=== PATIENT | female | born 1935 | race Caucasian/White ===

== ENCOUNTER 2024-03-17 14:32 | Observation (INO) | payer MEDICARE ==
[2024-03-17 15:42] LABS: Basophils # (A) 0.1 k/uL (0-0.2); Basophils % (A) 1 %; Eosinophils # (A) 0.3 k/uL (0-0.7); Eosinophils % (A) 3 %; HCT 42.4 % (34.0-46.0); HGB 13.4 gm/dL (11.4-16.0); Lymphocytes # (A) 1.8 k/uL (1.0-4.8); Lymphocytes % (A) 24 %; MCH 30.6 pg (25.0-35.0); MCHC 31.6 g/dL (31.0-37.0); MCV 96.8 fL (80.0-100.0); Mean Platelet Volume 7.7; Monocytes # (A) 0.5 k/uL (0-1.0); Monocytes % (A) 6 %; Neutrophils # (A) 4.7 k/uL (1.3-7.7); Neutrophils % (A) 64 %; Platelet Count 239 k/uL (150-450); RBC 4.39 m/uL (3.80-5.40); RDW 13.5 % (11.5-15.5); WBC 7.4 k/uL (3.8-10.6)
--- NOTE | 2024-03-17 15:43 | ED ---
Abdominal Pain HPI - General Source: patient, family, RN notes reviewed Mode of arrival: ambulatory Limitations: no limitations <Kathy Sage - Last Filed: 03/17/24 15:42> <Jose R Bosch - Last Filed: 03/18/24 03:04> - General Chief Complaint: Abdominal Pain Stated Complaint: abd pain Time Seen by Provider: 03/17/24 15:42 - History of Present Illness Initial Comments: Quick [id number] female presenting with abdominal pain x 2 weeks. States the pain is nonlocalized. She is also having dark red rectal bleeding which prompted her to be evaluated in the ER. (Kathy Sage) 88-year-old female presenting with chief complaint of abdominal pain and GI bleed. Patient has been having lower aching abdominal pain for the past 2 weeks. Over the last 2 days she has had a combination of dark stool and bright red rectal bleeding. No blood thinners. This is what prompted her to come to the ER. She is accompanied by her daughter who provides majority of the history, stating that the patient has slight dementia. Admits to some nausea, no vomiting. Admits to constipation. No fevers. Daughter states that the patient has a strong family history of colon cancer. Daughter also states that the patient is sometimes out of breath with minimal exertion. No chest pain. (Jose R Bosch) - Related Data Home Medications Medication Instructions Recorded Confirmed Chlorthalidone [Hygroton] 25 mg PO DAILY 03/17/24 03/17/24 Losartan Potassium [Cozaar] 100 mg PO DAILY 03/17/24 03/17/24 Allergies Allergy/AdvReac Type Severity Reaction Status Date / Time meperidine [From Demerol] Allergy Vomiting Verified 03/17/24 19:58 Review of Systems ROS Other: All systems not noted in ROS Statement are negative. <Kathy Sage - Last Filed: 03/17/24 15:42> ROS Other: All systems not noted in ROS Statement are negative. <Jose R Bosch - Last Filed: 03/18/24 03:04> ROS Statement: Those systems with pertinent positive or pertinent negative responses have been documented in the HPI. Past Medical History Past Medical History: Atrial Fibrillation, Dementia, Hypertension Additional Past Surgical History / Comment(s): cardiac ablation, cervical fusion <Kathy Sage - Last Filed: 03/17/24 15:42> General Exam Limitations: no limitations <Kathy Sage - Last Filed: 03/17/24 15:42> Limitations: altered mental status (Dementia, baseline mental status. Daughter assists in providing history) General appearance: alert, in no apparent distress Head exam: Present: atraumatic, normocephalic Eye exam: Present: normal appearance, EOMI Neck exam: Present: normal inspection. Absent: meningismus Respiratory exam: Present: normal lung sounds bilaterally. Absent: respiratory distress, wheezes, rales, rhonchi, stridor Cardiovascular Exam: Present: regular rate, normal rhythm, normal heart sounds. Absent: systolic murmur, diastolic murmur, rubs, gallop, clicks GI/Abdominal exam: Present: soft. Absent: distended, tenderness, guarding, rebound, rigid Rectal exam: Present: normal inspection, normal rectal tone, heme (+) stool Neurological exam: Present: alert, oriented X3 Psychiatric exam: Present: normal affect, normal mood Skin exam: Present: warm, dry <Jose R Bosch - Last Filed: 03/18/24 03:04> - General Exam Comments Initial Comments: Visual Physical Exam Vital signs reviewed General: Well-appearing, nontoxic, no acute distress. Head: Normocephalic, atraumatic Eyes: PERRLA, EOMI ENT: Airway patent Chest: Nonlabored breathing Skin: No visual rash, normal skin tone Neuro: Alert and oriented 3 Musculoskeletal: No gross abnormalities (Kathy Sage) Course Vital Signs 03/17/24 03/17/24 03/17/24 14:50 17:34 22:12 Temperature 97.7 F Pulse Rate 55 L 59 L 55 L Respiratory 20 18 18 Rate Blood Pressure 187/87 148/70 155/81 O2 Sat by Pulse 95 96 97 Oximetry 03/18/24 00:20 Temperature Pulse Rate 53 L Respiratory 20 Rate Blood Pressure 153/74 O2 Sat by Pulse 97 Oximetry Medical Decision Making - Lab Data Result diagrams: 03/17/24 15:01 <Kathy Sage - Last Filed: 03/17/24 15:42> - Lab Data Result diagrams: 03/17/24 15:01 03/17/24 15:01 <Jose R Bosch - Last Filed: 03/18/24 03:04> - Medical Decision Making I completed the quick note portion of this chart signed Kathy Sage PA-C (Kathy Sage) Was pt. sent in by a medical professional or institution ([facility], [facility], urgent care, hospital, or long-term...) When possible be specific @ -No Did you speak to anyone other than the patient for history (EMS, parent, family, police, friend...)? What history was obtained from this source @ -Majority of the history is obtained from patient's daughter at bedside Did you review nursing and triage notes (agree or disagree)? Why? @ -I reviewed and agree with nursing and triage notes Were old charts reviewed (outside hosp., previous admission, EMS record, old EKG, old radiological studies, urgent care reports/EKG's, long-term records)? Report findings @ -No old charts were reviewed Differential Diagnosis (chest pain, altered mental status, abdominal pain women, abdominal pain men, vaginal bleeding, weakness, fever, dyspnea, syncope, headache, dizziness, GI bleed, back pain, seizure, CVA, palpatations, mental health, musculoskeletal)? @ -MDM Differential GI Bleed: Esophageal varices, aortoenteric fistula, Shala-Sherwood, gastritis, peptic ulcer disease, diverticulosis, inflammatory bowel disease, hemorrhoids, fissure, colitis, malignancy, Meckels diverticulum this is not meant to be an all- inclusive list. EKG interpreted by me (3pts min.). @ -As above X-rays interpreted by me (1pt min.). @ -None done CT interpreted by me (1pt min.). @ -CT shows no evidence for gastrointestinal hemorrhage on this non-GI bleed scan. Consider evaluation with tagged red blood cell scan if there is concern for hemorrhage. No evidence for acute abdominal process. Moderate to large leobardo unt of stool throughout the colon. Grade 2 anterolisthesis of L4 and L5. No spondylolysis. Fibroid uterus. U/S interpreted by me (1pt. min.). @ -None done What testing was considered but not performed or refused? (CT, X-rays, U/S, labs)? Why? @ -None What meds were considered but not given or refused? Why? @ -None Did you discuss the management of the patient with other professionals (sarah rush ikeya Heard, PA, [facility], lab, RT, psych nurse, social work manager, ergonomics consultant, teacher, corporate security officer, machine adjuster leader case trim)? Give summary @ -I spoke with Dr. Yañez who accepted admission Was smoking cessation discussed for >3mins.? @ -No Was critical care preformed (if so, how long)? @ -No Were there social determinants of health that impacted care today? How? (Homelessness, low income, unemployed, alcoholism, drug addiction, transportation, low edu. Level, literacy, decrease access to med. care, care home, r ehab)? @ -No Was there de-escalation of care discussed even if they declined (Discuss DNR or withdrawal of care, Hospice)? DNR status @ -No What co-morbidities impacted this encounter? (DM, HTN, Smoking, COPD, CAD, Cancer, CVA, ARF, Chemo, Hep., AIDS, mental health diagnosis, sleep apnea, morbid obesity)? @ -None Was patient admitted / discharged? Hospital course, mention meds given and route, prescriptions, significant lab abnormalities, going to OR and other pertinent info. @ -88-year-old female present with chief complaint of abdominal pain and GI bleed. Abdominal pain has been ongoing for 2 weeks but bleeding started 2 days ago. Workup is initiated by triage. Hemoglobin is stable at 13.4, patient does not take blood thinners. Positive called stool. Remainder of lab work is opal ssly unremarkable. CT shows no acute findings to account for the patient's bleeding. Shared decision-making was utilized, patient and her daughter decide that they would prefer admission with evaluation by GI. Given the patient's strong family history of colon cancer I believe this is reasonable. Patient and daughter are agreeable with this plan. I discussed this case with my attending Dr. Gutierrez Undiagnosed new problem with uncertain prognosis? @ -No Drug Therapy requiring intensive monitoring for toxicity (Heparin, Nitro, Insulin, Cardizem)? @ -No Were any procedures done? @ -No Diagnosis/symptom? @ -GI bleed, abdominal pain Acute, or Chronic, or Acute on Chronic? @ -Acute Uncomplicated (without systemic symptoms) or Complicated (systemic symptoms)? @ -Uncomplicated Side effects of treatment? @ -No Exacerbation, Progression, or Severe Exacerbation? @ -No Poses a threat to life or bodily function? How? (Chest pain, [place], [place], pneumonia, PE, COPD, DKA, ARF, appy, cholecystitis, CVA, Diverticulitis, Homicidal, Suicidal, threat to staff... and all critical care pts) @ -Potential (Jose R Bosch) - Lab Data Lab Results 03/17/24 03/17/24 03/17/24 Range/Units 15:01 15:01 15:01 WBC 7.4 (3.8-10.6) k/uL RBC 4.39 (3.80-5.40) m/uL Hgb 13.4 (11.4-16.0) gm/dL Hct 42.4 (34.0-46.0) % MCV 96.8 (80.0-100.0) fL MCH 30.6 (25.0-35.0) pg MCHC 31.6 (31.0-37.0) g/dL RDW 13.5 (11.5-15.5) % Plt Count 239 (150-450) k/uL MPV 7.7 Neutrophils % 64 % Lymphocytes % 24 % Monocytes % 6 % Eosinophils % 3 % Basophils % 1 % Neutrophils # 4.7 (1.3-7.7) k/uL Lymphocytes # 1.8 (1.0-4.8) k/uL Monocytes # 0.5 (0-1.0) k/uL Eosinophils # 0.3 (0-0.7) k/uL Basophils # 0.1 (0-0.2) k/uL APTT 23.1 (22.0-30.0) sec Sodium 138 (137-145) mmol/L Potassium 3.7 (3.5-5.1) mmol/L Chloride 104 (98-107) mmol/L Carbon Dioxide 29 (22-30) mmol/L Anion Gap 5 mmol/L BUN 13 (7-17) mg/dL Creatinine 0.78 (0.52-1.04) mg/dL Est GFR (CKD-EPI)AfAm 80 (>60 ml/min/1.73 sqM) Est GFR (CKD-EPI)NonAf 69 (>60 ml/min/1.73 sqM) Glucose 89 (74-99) mg/dL Plasma Lactic Acid Jose Luis (0.7-2.0) mmol/L Calcium 9.0 (8.4-10.2) mg/dL Total Bilirubin 0.8 (0.2-1.3) mg/dL AST 26 (14-36) U/L ALT 16 (4-34) U/L Alkaline Phosphatase 78 (38-126) U/L Troponin I (0.000-0.034) ng/mL Total Protein 6.8 (6.3-8.2) g/dL Albumin 4.2 (3.5-5.0) g/dL Amylase 70 (30-110) U/L Lipase 164 (23-300) U/L Urine Color Urine Appearance (Clear) Urine pH (5.0-8.0) Ur Specific [place] (1.001-1.035) Urine Protein (Negative) Urine Glucose (UA) (Negative) Urine Ketones (Negative) Urine Blood (Negative) Urine Nitrite (Negative) Urine Bilirubin (Negative) Urine Urobilinogen (<2.0) mg/dL Ur Leukocyte Esterase (Negative) Stool Occult Blood (Negative) Blood Type Blood Type Confirm Blood Type Recheck Bld Type Recheck Status Antibody Screen Spec Expiration Date 03/17/24 03/17/24 03/17/24 Range/Units 15:01 15:01 15:09 WBC (3.8-10.6) k/uL RBC (3.80-5.40) m/uL Hgb (11.4-16.0) gm/dL Hct (34.0-46.0) % MCV (80.0-100.0) fL MCH (25.0-35.0) pg MCHC (31.0-37.0) g/dL RDW (11.5-15.5) % Plt Count (150-450) k/uL MPV Neutrophils % % Lymphocytes % % Monocytes % % Eosinophils % % Basophils % % Neutrophils # (1.3-7.7) k/uL Lymphocytes # (1.0-4.8) k/uL Monocytes # (0-1.0) k/uL Eosinophils # (0-0.7) k/uL Basophils # (0-0.2) k/uL APTT (22.0-30.0) sec Sodium (137-145) mmol/L Potassium (3.5-5.1) mmol/L Chloride (98-107) mmol/L Carbon Dioxide (22-30) mmol/L Anion Gap mmol/L BUN (7-17) mg/dL Creatinine (0.52-1.04) mg/dL Est GFR (CKD-EPI)AfAm (>60 ml/min/1.73 sqM) Est GFR (CKD-EPI)NonAf (>60 ml/min/1.73 sqM) Glucose (74-99) mg/dL Plasma Lactic Acid Jose Luis 0.8 (0.7-2.0) mmol/L Calcium (8.4-10.2) mg/dL Total Bilirubin (0.2-1.3) mg/dL AST (14-36) U/L ALT (4-34) U/L Alkaline Phosphatase (38-126) U/L Troponin I <0.012 (0.000-0.034) ng/mL Total Protein (6.3-8.2) g/dL Albumin (3.5-5.0) g/dL Amylase (30-110) U/L Lipase (23-300) U/L Urine Color Urine Appearance (Clear) Urine pH (5.0-8.0) Ur Specific [place] (1.001-1.035) Urine Protein (Negative) Urine Glucose (UA) (Negative) Urine Ketones (Negative) Urine Blood (Negative) Urine Nitrite (Negative) Urine Bilirubin (Negative) Urine Urobilinogen (<2.0) mg/dL Ur Leukocyte Esterase (Negative) Stool Occult Blood (Negative) Blood Type B Positive Blood Type Confirm Blood Type Recheck No Previous Record Bld Type Recheck Status CABO Indicated Antibody Screen NEGATIVE Spec Expiration Date 03/20/2024230803/17/24 03/17/24 03/17/24 Range/Units 15:14 17:36 20:27 WBC (3.8-10.6) k/uL RBC (3.80-5.40) m/uL Hgb (11.4-16.0) gm/dL Hct (34.0-46.0) % MCV (80.0-100.0) fL MCH (25.0-35.0) pg MCHC (31.0-37.0) g/dL RDW (11.5-15.5) % Plt Count (150-450) k/uL MPV Neutrophils % % Lymphocytes % % Monocytes % % Eosinophils % % Basophils % % Neutrophils # (1.3-7.7) k/uL Lymphocytes # (1.0-4.8) k/uL Monocytes # (0-1.0) k/uL Eosinophils # (0-0.7) k/uL Basophils # (0-0.2) k/uL APTT (22.0-30.0) sec Sodium (137-145) mmol/L Potassium (3.5-5.1) mmol/L Chloride (98-107) mmol/L Carbon Dioxide (22-30) mmol/L Anion Gap mmol/L BUN (7-17) mg/dL Creatinine (0.52-1.04) mg/dL Est GFR (CKD-EPI)AfAm (>60 ml/min/1.73 sqM) Est GFR (CKD-EPI)NonAf (>60 ml/min/1.73 sqM) Glucose (74-99) mg/dL Plasma Lactic Acid Jose Luis (0.7-2.0) mmol/L Calcium (8.4-10.2) mg/dL Total Bilirubin (0.2-1.3) mg/dL AST (14-36) U/L ALT (4-34) U/L Alkaline Phosphatase (38-126) U/L Troponin I (0.000-0.034) ng/mL Total Protein (6.3-8.2) g/dL Albumin (3.5-5.0) g/dL Amylase (30-110) U/L Lipase (23-300) U/L Urine Color Colorless Urine Appearance Clear (Clear) Urine pH 7.5 (5.0-8.0) Ur Specific [place] 1.003 (1.001-1.035) Urine Protein Negative (Negative) Urine Glucose (UA) Negative (Negative) Urine Ketones Negative (Negative) Urine Blood Negative (Negative) Urine Nitrite Negative (Negative) Urine Bilirubin Negative (Negative) Urine Urobilinogen <2.0 (<2.0) mg/dL Ur Leukocyte Esterase Negative (Negative) Stool Occult Blood Positive H (Negative) Blood Type Blood Type Confirm B Positive Blood Type Recheck Bld Type Recheck Status Antibody Screen Spec Expiration Date Disposition <Kathy Sage - Last Filed: 03/17/24 15:42> Time of Disposition: 21:53 <Jose R Bosch - Last Filed: 03/18/24 03:04> Clinical Impression: GI bleed, Abdominal pain Disposition: ADMITTED IP TO THIS HOSP Condition: Fair
[2024-03-17 15:44] LABS: ALT 16 U/L (4-34); AST 26 U/L (14-36); African American GFR (CKD) 80 (>60 ml/min/1.73 sqM); Albumin 4.2 g/dL (3.5-5.0); Alkaline Phosphatase 78 U/L (38-126); Amylase 70 U/L (30-110); Anion Gap 5 mmol/L; Blood Urea Nitrogen 13 mg/dL (7-17); Carbon Dioxide 29 mmol/L (22-30); Chloride 104 mmol/L (98-107); Glucose 89 mg/dL (74-99); Lipase 164 U/L (23-300); Non-African American GFR(CKD) 69 (>60 ml/min/1.73 sqM); Potassium 3.7 mmol/L (3.5-5.1); Sodium 138 mmol/L (137-145); Total Bilirubin 0.8 mg/dL (0.2-1.3); Total Protein 6.8 g/dL (6.3-8.2)
[2024-03-17 17:47] LABS: Appearance,Urine Clear (Clear); Bilirubin,Urine Negative (Negative); Blood,Urine Negative (Negative); Color,Urine Colorless; Glucose,Urine (UA) Negative (Negative); Ketones,Urine Negative (Negative); Leukocyte Esterase,Urine Negative (Negative); Nitrite,Urine Negative (Negative); PH, Urine 7.5 (5.0-8.0); Protein,Urine Negative (Negative); Specific Gravity,Urine 1.003 (1.001-1.035); Urobilinogen,Urine <2.0 mg/dL (<2.0)
[2024-03-17] MEDS: SODIUM CHLORIDE 0.9% 500 ML 500 ML IV ONE (18:33)
[2024-03-17] MEDS: MORPHINE SULFATE 2 MG/ML SYRINGE IVP STA (18:34)
--- NOTE | 2024-03-17 18:52 | CT ---
EXAMINATION TYPE: CT abdomen pelvis w con CT DLP: 662.4 mGycm, Automated exposure control for dose reduction was used. DATE OF EXAM: 03/17/2024 6:38 PM COMPARISON: None CLINICAL INDICATION:Female, 88 years old with history of lower abdominal pain; Lower abdominal pain. Dark red rectal bleeding. TECHNIQUE: Axial CT abdomen pelvis w con;Sagittal and coronal reformats were created on a separate w orkstation. Contrast used:80 mL of Isovue 300 with IV Contrast, (none if empty) Oral contrast used: without Oral Contrast (none if empty) FINDINGS: LOWER CHEST: Unremarkable ABDOMEN LIVER: Unremarkable GALLBLADDER AND BILE DUCTS: Unremarkable. PANCREAS: Unremarkable. SPLEEN: Unremarkable. ADRENAL GLANDS: Unremarkable. KIDNEYS AND URETERS: No evidence of hydronephrosis or renal calculus. The ureters are unremarkable. PELVIS BLADDER: Unremarkable REPRODUCTIVE: Lobular contour to the uterus with calcified degenerating fibroids throughout. ABDOMEN & PELVIS STOMACH AND BOWEL: Small hiatal hernia.No evidence of bowel obstruction. The appendix is normal. PERITONEUM/RETROPERITONEUM: No evidence of pneumoperitoneum or free fluid. VASCULATURE: No evidence of aortic aneurysm. MUSCULOSKELETAL: No acute osseous abnormalities. Moderate disc degeneration changes are present throu ghout the thoracolumbar spine. Grade 2 anterolisthesis of L4 and L5. No spondylolysis. LYMPH NODES: No gross evidence for lymphadenopathy. SOFT TISSUE/ABDOMINAL WALL: Fat-containing inguinal hernias left greater than right. IMPRESSION: 1. No evidence for gastrointestinal hemorrhage on this non-GI bleed scan. Consider evaluation with t agged red blood cell scan if this concern for hemorrhage. 2. No evidence for acute abdominal process. 3. Moderate to large amount stool throughout the colon. 4. Grade 2 anterolisthesis of L4 and L5. No spondylolysis. 5. Fibroid uterus.
[2024-03-17] MEDS ORDERED: NALOXONE 0.4 MG/ML 1 ML VIAL IV PRN (21:44)
--- NOTE | 2024-03-18 00:23 | P.HPIM ---
History of Present Illness H&P Date: 03/17/24 Chief Complaint: rectal bleed 88 year old female with hypertension patient unable to provide any meaningful history due to what appears to be dementia, she believes her mother brought her to the hospital , then goes into a tangential thought process without any meaningful information. she denies any complaint right now. denies abd pain , chest pain , trouble breathing, nausea vomiting. Per the ED note patient was brought in for suspected rectal bleed with a chief c omplaint of dark bowel movement and vague abdominal discomfort over the past few days. No other information available at this time from ED note. Attempted to call the daughter at [phone] go straight to answering system. review of systems Unable to obtain due to suspected dementia on exam Constitutional: No acute distress, conversant, pleasant Eyes: Anicteric sclerae, moist conjunctiva, Pupils equal round reactive to light ENMT: NC/AT Oropharynx clear, no erythema, or exudates Neck: Supple, no masses, or JVD No carotid bruits No thyromegaly Lungs: Clear to auscultation Clear to percussion Normal respiratory effort, no accessory muscle use Cardiovascular: Heart regular in rate and rhythm, No murmurs, gallops, or rubs No peripheral edema Abdominal: Soft Nontender, no guarding, rebound or rigidity Abdomen moving with respiration Normoactive bowel sounds Extremities: No digital cyanosis No clubbing Pedal pulses intact and symmetrical Radial pulses intact and symmetrical No calf tenderness Psychiatric: Alert and oriented to person and place Neuro Muscles Strength 5/5 in all 4 extremities Sensation to light touch grossly present throughout Cranial nerves II-XII grossly intact Past Medical History Past Medical History: Atrial Fibrillation, Dementia, Hypertension Additional Past Surgical History / Comment(s): cardiac ablation, cervical fusion Medications and Allergies Home Medications Medication Instructions Recorded Confirmed Type Chlorthalidone [Hygroton] 25 mg PO DAILY 03/17/24 03/17/24 History Losartan Potassium [Cozaar] 100 mg PO DAILY 03/17/24 03/17/24 History Allergies Allergy/AdvReac Type Severity Reaction Status Date / Time meperidine [From Demerol] Allergy Vomiting Verified 03/17/24 19:58 Physical Exam Vitals: Vital Signs Temp Pulse Resp BP Pulse Ox 03/17/24 22:12 55 L 18 155/81 97 07/07/24 17:34 59 L 18 148/70 96 03/17/24 14:50 97.7 F 55 L 20 187/87 95 Intake and Output 03/17/24 03/17/24 03/18/24 14:59 22:59 06:59 Other: Weight 54.431 kg Results CBC & Chem 7: 03/17/24 15:01 03/17/24 15:01 Labs: Abnormal Lab Results - Last 24 Hours (Table) 03/17/24 Range/Units 20:27 Stool Occult Blood Positive H (Negative) Assessment and Plan Assessment: 88-year-old female with hypertension coming in due to suspected rectal bleed discussed case with ED doctor and accepted the admission for suspected GI bleed for GI evaluation with anticipated length of stay less than 2 midnights Suspected GI bleed Hemoglobin within normal limits 13.4 MCV 96 within normal limit White count 7.4 within normal limits Home medications does not show any aspirin or blood thinners GI consultation Follow-up hemoglobin in the morning CT of the abdomen showing no evidence of GI bleeding, no evidence of acute intra-abdominal process is also showing moderate to large amount of stool throug hout the colon Monitor vital signs IV fluid hydration with normal saline 75 cc/h Protonix 40 mg p.o. 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
[2024-03-18] MEDS: SODIUM CHLORIDE 0.9% 1,000 ML IV SCH (00:30)
[2024-03-18 05:53] VITALS: RESP 16
[2024-03-18 07:15] LABS: Basophils # (A) 0.1 k/uL (0-0.2); Basophils % (A) 1 %; Eosinophils # (A) 0.4 k/uL (0-0.7); Eosinophils % (A) 6 %; HCT 39.6 % (34.0-46.0); HGB 12.7 gm/dL (11.4-16.0); Lymphocytes # (A) 1.9 k/uL (1.0-4.8); Lymphocytes % (A) 28 %; MCH 31.3 pg (25.0-35.0); MCHC 32.2 g/dL (31.0-37.0); MCV 97.2 fL (80.0-100.0); Mean Platelet Volume 7.4; Monocytes # (A) 0.4 k/uL (0-1.0); Monocytes % (A) 6 %; Neutrophils # (A) 4.2 k/uL (1.3-7.7); Neutrophils % (A) 59 %; Platelet Count 229 k/uL (150-450); RBC 4.07 m/uL (3.80-5.40); RDW 13.5 % (11.5-15.5)
[2024-03-18 07:53] LABS: ALT 13 U/L (4-34); AST 21 U/L (14-36); African American GFR (CKD) >90 (>60 ml/min/1.73 sqM); Albumin 3.3 g/dL (3.5-5.0); Alkaline Phosphatase 63 U/L (38-126); Anion Gap 4 mmol/L; Blood Urea Nitrogen 10 mg/dL (7-17); Calcium 8.8 mg/dL (8.4-10.2); Carbon Dioxide 27 mmol/L (22-30); Chloride 108 mmol/L (98-107); Glucose 83 mg/dL (74-99); Non-African American GFR(CKD) 79 (>60 ml/min/1.73 sqM); Potassium 3.7 mmol/L (3.5-5.1); Sodium 139 mmol/L (137-145); Total Bilirubin 0.7 mg/dL (0.2-1.3); Total Protein 5.4 g/dL (6.3-8.2)
--- NOTE | 2024-03-18 10:15 | P.CONS ---
History of Present Illness - Reason for Consult Consult date: 03/18/24 GI bleed Requesting physician: Jose R Bosch - Chief Complaint abdominal pain, rectal bleeding - History of Present Illness This is a pleasant 88-year-old female with a history of dementia, chronic constipation, Atrial fibrillation not on anticoagulation, and hypertension. She had presented to the emergency department with complaints of abdominal pain for the last 1 week duration and having a dark stool with bright red blood in the toilet with a bowel movement. Patient herself is somewhat of a poor historian her daughter who is at the bedside is providing most of her history. States that last week she had abdominal pain and her mom was doubled over however it did subside. She has a history of chronic constipation for most of her life and only takes milk of magnesia intermittently. States normal bowel movements for her is maybe once or twice a week. However it has been worse lately. She denies any nausea or vomiting. Her last colonoscopy many years ago however daughter does state that the patient's mother was diagnosed and of colon cancer in her 80s. Patient states abdominal pain is improved and has subsided. Yesterday was her last bowel movement. She has had no rectal bleeding. Labs were unremarkable and hemoglobin normal on admission with repeat today normal as well. She had a CT of the abdomen pelvis with no acute findings does report moderate to large amount stool throughout the colon. Review of Systems REVIEW OF SYSTEMS: CARDIOPULMONARY: No chest pain or shortness of breath. Gastrointestinal: Abdominal pain, improved. No nausea or vomiting. No hematemesis, coffee-ground emesis. Chronic constipation. Reported dark stool and bright red blood with bowel movement yesterday. GENITOURINARY: No dysuria or hematuria. MUSCULOSKELETAL: Reports normal range of motion. SKIN: No rashes. No jaundice. ENDOCRINE: No chills, fevers. No excessive weight gain or loss. No polydipsia or polyuria. PSYCHIATRIC: Unremarkable. NEUROLOGY: No change in mental status. Denies dizziness, headache. ENT: Vision unremarkable. CONSTITUTIONAL: No recent weight loss. No fever, chills, night sweats. Past Medical History Past Medical History: Atrial Fibrillation, Dementia, Hypertension Additional Past Surgical History / Comment(s): cardiac ablation, cervical fusion Medications and Allergies Home Medications Medication Instructions Recorded Confirmed Type Chlorthalidone [Hygroton] 25 mg PO DAILY 03/17/24 03/17/24 History Losartan Potassium [Cozaar] 100 mg PO DAILY 03/17/24 03/17/24 History Allergies Allergy/AdvReac Type Severity Reaction Status Date / Time meperidine [From Demerol] Allergy Vomiting Verified 03/17/24 19:58 Physical Exam Vitals: Vital Signs Temp Pulse Pulse Resp BP BP Pulse Ox 03/18/24 07:00 97.7 F 50 L 16 153/76 97 03/18/24 05:52 55 L 16 148/79 98 03/18/24 00:20 53 L 20 153/74 97 03/17/24 22:12 55 L 18 155/81 97 03/17/24 17:34 59 L 18 148/70 96 03/17/24 14:50 97.7 F 55 L 20 187/87 95 General appearance: The patient is alert, oriented, appears in no acute distress. HET: Head is normocephalic and atraumatic. Conjunctiva pink. Sclera anicteric. Neck: Supple without lymphadenopathy. Trachea midline. Heart: Regular. Lungs: Equal expansion, normal respiratory effort. Abdomen: Soft, nontender, nondistended. Skin: No rashes. No jaundice. Extremities: Normal skin color and turgor. No pedal edema. Neurological: No focal deficits. Alert and oriented x3. Results CBC & Chem 7: 03/18/24 06:43 03/18/24 06:43 Labs: Abnormal Lab Results - Last 24 Hours (Table) 03/17/24 03/18/24 Range/Units 20:27 06:43 Chloride 108 H (98-107) mmol/L Total Protein 5.4 L (6.3-8.2) g/dL Albumin 3.3 L (3.5-5.0) g/dL Stool Occult Blood Positive H (Negative) Comments: CT abdomen pelvis with contrast reports no evidence for gastrointestinal hemorrhage on this none GI bleed scan. Consider evaluation with tagged red blood cell scan if this concern for hemorrhage. No evidence for acute abdominal process. Moderate to large amount stool throughout the colon. Grade 2 a nterolisthesis of L4 and L5. No spondylolysis. Fibroid uterus. Assessment and Plan (1) Rectal bleeding Narrative/Plan: 88-year-old female with history of chronic constipation for most of her life with reportedly only going possibly once or twice a week without having a bowel movement yesterday with noted bright red blood with a bowel movement which the patient and daughter were concerned. Patient has had repeat ported abdominal pain over the last 1 week duration that has been intermittent. No associated nausea or vomiting. No previous history of GI bleed. Last colonoscopy remote with history of colon polyps. Likely rectal bleeding related to constipation possible fissure, hemorrhoidal or stercoral ulcer, will treat symptomatically at this time with MiraLAX and enema for constipation. However do need to consider possible other etiologies and due to patient's family history of colon cancer patient and daughter would like to proceed with colonoscopy. Current Visit: Yes Status: Acute Code(s): K62.5 - HEMORRHAGE OF ANUS AND RECTUM SNOMED Code(s): 12583342 (2) Abdominal pain Current Visit: Yes Status: Acute Code(s): R10.9 - UNSPECIFIED ABDOMINAL PAIN SNOMED Code(s): 53608150 (3) Chronic constipation Narrative/Plan: Discussed with patient and daughter importance of regular bowel regimen. Recommend MiraLAX daily to twice daily for more consistent bowel movements. Current Visit: Yes Status: Acute Code(s): K59.09 - OTHER CONSTIPATION SNOMED Code(s): 803838026 Plan: 1. Continue symptomatic and supportive care 2. MiraLAX daily, can titrate to twice a day 3. Soapsuds enema x 1 4. Protonix 40 mg daily for GI prophylaxis 5. Patient may have clear liquid diet, n.p.o. after midnight 6. Continue to monitor for GI bleed 7. GoLytely this evening 8. Plan for colonoscopy tomorrow Thank you for this consultation, we will continue to follow. Dr. Haris Thomas I agree with the dictator's note, documented as a scribe by Mikala Pham.
[2024-03-18] MEDS: PANTOPRAZOLE 40 MG TABLET PO SCH (11:10)
[2024-03-18] MEDS: LOSARTAN 50 MG TAB PO SCH (11:10)
[2024-03-18] MEDS: polyethylene glycoL 3350 17 GM POWD.PACK PO SCH (11:10)
--- NOTE | 2024-03-18 13:06 | P.PN ---
Subjective Progress Note Date: 03/18/24 No new complaints. Pt still reporting constipation, but denies n/v. Hgb has been stable. GI consultation appreciated. Gen: In NAD, non-toxic HEENT: normocephalic, atraumatic, hearing acuity is intant, mucous membranes moist CVS: perfusing all extremities well, no pitting edema, Respiratory: symmetric chest expansion, no accessory muscle use, GI: soft, NTTP, ND, : no suprapubic tenderness, no CVA tenderness MSK/Derm: no rashes, cyanosis Neuro: CN II-XII intact, no motor weakness, Psych: cooperative, euthymic mood, judgment and insight is intact Hospital course: 88-year-old woman with medical history of hypertension provide patient presents for evaluation of abdominal pain, rectal bleeding. Upon initial presentation, patient was afebrile, 187/87, heart rate 55, 95% on room air. Initial CBC was noted to be unremarkable. Basic metabolic panel was noted to be unremarkable. Lipase was 164. Troponin was less than 0.012. Liver function tests are unremarkable. Urinalysis was unremarkable. FOBT was positive. Abdomen/pelvis CT was completed and showed no acute abdominal process, moderate to large stool burden. Patient was admitted to observation with GI consultation and started on a stool regimen. Hemoglobin was noted to be stable. Assessment/plan: Abdominal pain Rectal bleeding -Patient was admitted to observation, continue to monitor -GI consultation is appreciated -Bowel regimen: MiraLAX 17 g daily, soapsuds enema -Pantoprazole daily -IV fluids: Normal saline at 75 cc/h Hypertension -Resume home losartan 100 mg daily Patient is full code Chemical DVT prophylaxis is held at this time due to potential rectal bleeding; continue SCDs Objective - Vital Signs Vital signs: Vital Signs Temp 97.7 F 03/18/24 07:00 Pulse 50 L 03/18/24 07:00 Resp 16 03/18/24 07:00 BP 153/76 03/18/24 07:00 Pulse Ox 97 03/18/24 07:00 FiO2 Intake & Output 03/17/24 03/18/24 03/18/24 18:59 06:59 18:59 Intake Total 118 Balance 118 Weight 54.431 kg Intake: Oral 118 Other: # Voids 1 # Bowel Movements 1 - Labs CBC & Chem 7: 03/18/24 06:43 03/18/24 06:43 Labs: Abnormal Lab Results - Last 24 Hours (Table) 03/17/24 03/18/24 Range/Units 20:27 06:43 Chloride 108 H (98-107) mmol/L Total Protein 5.4 L (6.3-8.2) g/dL Albumin 3.3 L (3.5-5.0) g/dL Stool Occult Blood Positive H (Negative)
[2024-03-18] MEDS: PEG 3350 (236 GM/BTL) + LYTES 4,000 ML BOTTLE PO ONE (16:17)
[2024-03-19] MEDS ORDERED: hydrALAZINE HCL 25 MG TAB PO PRN (02:17)
[2024-03-19] MEDS: hydrALAZINE HCL 25 MG TAB PO STA (02:23)
[2024-03-19 10:39] LABS: Basophils # (A) 0.04 X 10*3/uL (0.00-0.10); Basophils % (A) 0.7 %; Eosinophils # (A) 0.34 X 10*3/uL (0.04-0.35); HCT 38.1 % (37.2-46.3); HGB 12.1 g/dL (12.0-15.0); Lymphocytes # (A) 1.92 X 10*3/uL (0.90-5.00); Lymphocytes % (A) 33.9 %; MCH 29.9 pg (27.0-32.0); MCHC 31.8 g/dL (32.0-37.0); MCV 94.1 FL (80.0-97.0); Mean Platelet Volume 9.8 FL (9.5-12.2); Monocytes # (A) 0.45 X 10*3/uL (0.20-1.00); NRBC Per 100 WBC 0 X 10*3/uL (0.00-0.01); Neutrophils # (A) 2.89 X 10*3/uL (1.80-7.70); Platelet Count 230 X 10*3/uL (140-440); RBC 4.05 X 10*6/uL (4.10-5.20); RDW 13.3 % (11.5-14.5); WBC 5.66 X 10*3/uL (4.50-10.00)
[2024-03-19 10:48] LABS: BUN/Creat Ratio 7.38 Ratio (12.00-20.00); Blood Urea Nitrogen 5.9 mg/dL (9.0-27.0); Calcium 8.6 mg/dL (8.7-10.3); Carbon Dioxide 28.6 mmol/L (21.6-31.8); Chloride 107 mmol/L (96-109); Glucose 90 mg/dL (70-110); Potassium 3.6 mmol/L (3.5-5.5); Sodium 145 mmol/L (135-145)
[2024-03-19] MEDS: IV FLUID CONTINUATION 100 ML IV ONE ×2 (13:47→13:58)
[2024-03-19] MEDS ORDERED: PROPOFOL 10 MG/ML 20 ML VIAL IV ONE (13:55)
[2024-03-19] MEDS: SODIUM CHLORIDE 0.9% 500 ML 500 ML IV ONE ×2 (13:58→14:15)
--- NOTE | 2024-03-19 14:19 | P.PCN ---
Date of Procedure: 03/19/24 Procedure(s) Performed: BRIEF HISTORY: Patient is a 88-year-old pleasant white female scheduled for an elective colonoscopy as a part of evaluation of rectal bleeding. PROCEDURE PERFORMED: Colonoscopy with biopsy. PREOPERATIVE DIAGNOSIS: Rectal bleeding. IV sedation per Anesthesia. PROCEDURE: After informed consent was obtained, the patient, was brought into the endoscopy unit. IV sedation was administered by Anesthesia under continuous monitoring. Digital rectal examination was normal. Initially the Olympus CF-160 flexible video colonoscope was then inserted in the rectum, gradually advanced into the cecum without any difficulty. Careful examination was performed as the scope was gradually being withdrawn. Ileocecal valve and the appendiceal orifice were visualized and appeared normal. Prep was excellent. Mucosa of the cecum normal. Ascending colon there was a 5 mm polyp that was removed by cold biopsy. Rest of the, ascending colon, transverse colon, descending colon, sigmoid colon, and rectum appeared normal. Retroflexion was performed in the rectum and grade 2 internal hemorrhoids were seen. The patient tolerated the procedure well. IMPRESSION: 5 mm ascending colon polyp status post cold biopsy Grade 2 internal hemorrhoids RECOMMENDATIONS: Findings of this examination were discussed with the patient as well as her family. She was advised to follow-up with the biopsy results. Continue with high-fiber diet and fiber supplements on a regular basis and use MiraLAX as needed for the chronic constipation..
[2024-03-19 15:03] VITALS: TEMP 97.7
[2024-03-19 16:35] VITALS: BP 176/82; PULSE 47
--- NOTE | 2024-03-19 17:09 | P.DS ---
Providers Date of admission: 03/17/24 23:40 Expected date of discharge: 03/19/24 Attending physician: Earl Yañez MD Consults: 03/17/24 21:44 Consult Physician Urgent Consulting Provider: Wen Thomas Consult Reason/Comments: GI bleed Do you want consulting provider notified?: Yes, Notify in am Primary care physician: Nikolai Hernandez MD Hospital Course: Assessment: Abdominal pain Rectal bleeding Hypertension Gen: In NAD, non-toxic HEENT: normocephalic, atraumatic, hearing acuity is intant, mucous membranes moist CVS: perfusing all extremities well, no pitting edema, Respiratory: symmetric chest expansion, no accessory muscle use, GI: soft, NTTP, ND, : no suprapubic tenderness, no CVA tenderness MSK/Derm: no rashes, cyanosis Neuro: CN II-XII intact, no motor weakness, Psych: cooperative, euthymic mood, judgment and insight is intact Hospital course: 88-year-old woman with medical history of hypertension provide patient presents for evaluation of abdominal pain, rectal bleeding. Upon initial presentation, patient was afebrile, 187/87, heart rate 55, 95% on room air. Initial CBC was noted to be unremarkable. Basic metabolic panel was noted to be unremarkable. Lipase was 164. Troponin was less than 0.012. Liver function tests are unremarkable. Urinalysis was unremarkable. FOBT was positive. Abdomen/pelvis CT was completed and showed no acute abdominal process, moderate to large stool burden. Patient was admitted to observation with GI consultation and started on a stool regimen. Hemoglobin was noted to be stable. Pt underwent colonoscopy and this showed hemorrhoids, as well as a polyp that was removed with forceps. Pt was deemed stable for discharge and will f/u with PCP and GI on discharge. Prescribed miralax to take daily for chornic constipation. I spent 38 min coordinating this discharge on 03/19 Patient Condition at Discharge: Good Plan - Discharge Summary New Discharge Prescriptions: New Pantoprazole [Protonix] 40 mg PO AC-BRKFST tab polyethylene glycoL 3350 [Miralax] 17 gm PO DAILY #30 packet Continue Chlorthalidone [Hygroton] 25 mg PO DAILY Losartan Potassium [Cozaar] 100 mg PO DAILY Discharge Medication List Chlorthalidone [Hygroton] 25 mg PO DAILY 03/17/24 [History] Losartan Potassium [Cozaar] 100 mg PO DAILY 03/17/24 [History] Pantoprazole [Protonix] 40 mg PO AC-BRKFST tab 03/19/24 [Rx] polyethylene glycoL 3350 [Miralax] 17 gm PO DAILY #30 packet 03/19/24 [Rx] Follow up Appointment(s)/Referral(s): Nikolai Hernandez MD [Primary Care Provider] - 1-2 days Wen Thomas MD [STAFF PHYSICIAN] - 1 Week Activity/Diet/Wound Care/Special Instructions: Recommend outpatient bowel regimen with MiraLAX once to twice daily. Avoid straining. Discharge Disposition: HOME SELF-CARE
== END 2024-03-19 17:58 | disposition home or self-care (01) ==
LOC: EC 14:32 → 6NMEDSUR 23:40
PROVIDERS: ADMIT Internal Medicine; ATTEND Internal Medicine
DX: K62.5 Hemorrhage of anus and rectum (principal); K64.1 Second degree hemorrhoids; K63.5 Polyp of colon; K59.09 Other constipation; I48.91 Unspecified atrial fibrillation; I10 Essential (primary) hypertension; Z87.19 Personal history of other diseases of the digestive system; Z80.0 Family history of malignant neoplasm of digestive organs; Z79.899 Other long term (current) drug therapy; F03.90 Unspecified dementia, unspecified severity, without behavioral disturbance, psychotic disturbance, mood disturbance, and anxiety
CPT/HCPCS: 96360; 96361; 99285; 36415; 93005; 86900; 86901; 80053 ×2; 80048; 82150; 83605; 83690; 83735; 84484; 85025 ×3; 85730; 86850; 82272; 81003; 74177; 45380; G0378 ×3; Q9967; 88305